=== PATIENT | female | born 1985 | race African-American/Black ===

== ENCOUNTER 2018-01-23 13:49 | Emergency (ER) | payer MEDICAID ==
[~2018-01-23] VITALS: Ht 170.2 cm; Wt 69.9 kg
[2018-01-23 14:15] VITALS: BP 110/57
--- NOTE | 2018-01-23 14:41 | PHYS DOC ---
Past Medical History Past Medical History: Diabetes-Type I, Other Additional Past Medical Histor: PWP, Past Surgical History: Other Additional Past Surgical Histo: D&C,CARDIAC OBLATION Alcohol Use: None Drug Use: None Adult General Chief Complaint Chief Complaint: ALLERGIC REACTION HPI HPI Patient is a 32 year old female who presents to the emergency Department today with complaints of throat itching, and some chest tightness that occurred after eating [employer] this afternoon. She states she is allergic to latex and that she called the restaurant after the symptoms developed and asked them if they used latex gloves to prepare food. Patient states that the restaurant employee told her that latex gloves are used to prepare the food. Patient states she then took a Benadryl, 25 mg tablet at approximately 1330. At this time she denies any difficulty swallowing, throat itching, shortness breath, or chest tightness. She states she feels much better and denies any complaints at this time. Patient also denies any pain at this time Review of Systems Review of Systems Constitutional: Denies fever or chills [] HENT: Denies nasal congestion , throat itching, throat swelling, difficulty breathing, or sore throat [] Respiratory: Denies cough, wheezing, or shortness of breath [] Cardiovascular: Denies chest pain Integument: Denies rash or skin lesions [] Neurologic: Denies headache, focal weakness or sensory changes [] All other systems were reviewed and found to be within normal limits, except as documented in this note. Allergies Allergies Allergies Coded Allergies Type Severity Reaction Last Updated Verified azithromycin Allergy Severe HIVES 01/23/18 Yes latex Allergy Severe FACIAL; SWELLING 01/23/18 Yes hydrocodone Allergy Intermediate VOMITING 01/23/18 Yes Physical Exam Physical Exam Constitutional: Well developed, well nourished, no acute distress, non-toxic appearance. [] HENT: Normocephalic, atraumatic, bilateral external ears normal, oropharynx moist, no oral exudates, no erythema of posterior pharynx, airway is open, nose normal. [] Eyes: PERRLA,conjunctiva normal, no discharge. [] Neck: no tenderness, supple, no stridor. [] Cardiovascular:Heart rate regular rhythm, no murmur [] Lungs & Thorax: Bilateral breath sounds clear to auscultation [] Skin: Warm, dry, no erythema, no rash. [] Extremities: No tenderness, no cyanosis, no edema. [] Neurologic: Alert and oriented X 3, normal motor function, normal sensory function, no focal deficits noted. [] Psychologic: Affect normal, judgement normal, mood normal. [] Current Patient Data Vital Signs Vital Signs Date Time Temp Pulse Resp B/P (MAP) Pulse Ox O2 Delivery O2 Flow Rate FiO2 01/23/18 14:15 98.4 83 18 110/57 (74) 99 Room Air 98.4 EKG EKG [] Radiology/Procedures Radiology/Procedures [] Course & Med Decision Making Course & Med Decision Making Pertinent Labs and Imaging studies reviewed. (See chart for details) Patient is a 32-year-old female who presented to the emergency room with reports of a possible allergic reaction to latex labs that was used to prepare food at [employer]. VSS, physical exam is negative for any acute findings or any concerns of anaphylaxis. Patient's reports feeling better after taking a Benadryl prior to arrival at the emergency room. Clinically she presents as an allergic reaction to a food allergy. She was treated as such. Patient was instructed to continue taking Benadryl every 6 hours as needed. Follow-up with her primary care doctor in the next 1-2 days. Return to the emergency room if her symptoms worsen. [] Dragon Disclaimer Dragon Disclaimer This electronic medical record was generated, in whole or in part, using a voice recognition dictation system. Departure Departure Impression: Primary Impression: Allergic reaction to latex Patient Instructions: Latex Allergy Additional Instructions: Continue taking oral Benadryl every 6 hours as needed. Follow-up with your primary care doctor in the next 1-2 days. Return to the ER for symptoms worsen. Problem Qualifiers Primary Impression: Allergic reaction to latex Encounter type: initial encounter Injury intent: accidental or unintentional Qualified Codes: T65.811A - Toxic effect of latex, accidental ( unintentional), initial encounter JOSÉ CRUZ [employer] SERVER Jan 23, 2018 14:41
== END 2018-01-23 14:55 | disposition home or self-care (01) ==
LOC: ER 13:49
DX: T65.811A Toxic effect of latex, accidental (unintentional), initial encounter (principal); E10.9 Type 1 diabetes mellitus without complications; Z88.5 Allergy status to narcotic agent; Z88.6 Allergy status to analgesic agent; Z91.040 Latex allergy status; X58.XXXA Exposure to other specified factors, initial encounter; Y93.89 Activity, other specified; Y92.89 Other specified places as the place of occurrence of the external cause; Y99.8 Other external cause status
CPT/HCPCS: 99281